=== PATIENT | male | born 1965 | race Hispanic/Latino ===

== ENCOUNTER 2018-08-05 13:15 | Outpatient (CLI) | payer OTHER ==
--- NOTE | 2018-08-05 13:56 | RAD ---
CHEST 2 VIEWS: Date: 08/05/18 COMPARISON: None. HISTORY: Status post CABG recently. Coronary artery disease. Cough and pain at incision site. FINDINGS: Sternotomy wires are noted. Cardiac silhouette is upper normal. There appear to be pleural and parenc hymal changes in the left lung base. Adequate aeration of the right lung. Right costophrenic angle is clear. No pneumothorax. IMPRESSION: Pleural and parenchymal changes in the left lung base. POS: C
== END 2018-08-05 13:16 | disposition home or self-care (01) ==
LOC: NAV RAD 13:15
PROVIDERS: ATTEND Family Medicine
DX: R07.9 Chest pain, unspecified (principal); R05 Cough
CPT/HCPCS: 71046